=== PATIENT | female | born 1985 | race Caucasian/White ===

== ENCOUNTER 2017-10-10 02:17 | Emergency (ER) | payer BC ==
[2017-10-10] MEDS: IBUPROFEN 600 MG TAB PO (04:38)
[2017-10-10] MEDS: ALPRAZOLAM 0.25 MG TAB PO (04:38)
[2017-10-10] MEDS: ONDANSETRON (ODT) 4 MG TAB ODT (04:39)
== END 2017-10-10 05:59 | disposition home or self-care (01) ==
LOC: E/R 02:17
DX: R51 Headache (principal); R11.0 Nausea; F14.90 Cocaine use, unspecified, uncomplicated; R00.0 Tachycardia, unspecified
CPT/HCPCS: 93005; 99284-25

== ENCOUNTER 2017-10-11 16:39 | Emergency (ER) | payer BC ==
[2017-10-11 18:28] LABS: ADD MAN DIFF? NO
[2017-10-11 18:29] LABS: WHITE BLOOD COUNT 6.2 10^3/ul (4.8-10.8)
[2017-10-11 18:29] LABS: BASOPHILS % 0.5 % (0.0-2.0); EOSINOPHILS # 0.3 10^3/ul (0.0-0.5); EOSINOPHILS % 4.4 % (0.0-7.0); HEMATOCRIT 30.3 % (37.0-47.0); HEMOGLOBIN 8.9 g/dl (12.0-16.0); LYMPHOCYTES # 2.6 10^3/ul (0.8-2.9); LYMPHOCYTES % 41.8 % (15.0-51.0); MEAN CORPUSCULAR HEMOGLOBIN 21.9 pg (29.0-33.0); MEAN CORPUSCULAR HGB CONC 29.4 g/dl (32.0-37.0); MEAN CORPUSCULAR VOLUME 74.4 fl (82.0-101.0); MONOCYTE # 0.6 10^3/ul (0.3-0.9); MONOCYTES % 9.7 % (0.0-11.0); NEUTROPHIL # 2.7 10^3/ul (1.6-7.5); NEUTROPHILS % 43.4 % (39.0-77.0); PLATELET COUNT 399 10^3/UL (140-415); RED BLOOD COUNT 4.07 10^6/ul (4.20-5.40); RED CELL DISTRIBUTION WIDTH 15.7 % (11.5-14.5)
[2017-10-11] MEDS: ONDANSETRON (ODT) 4 MG TAB ODT (18:50)
[2017-10-11] MEDS: FAMOTIDINE 20 MG TAB PO (18:50)
[2017-10-11] MEDS: HYDROCODONE/APAP (5/325) TAB PO (18:50)
[2017-10-11 18:57] LABS: ALANINE AMINOTRANSFERASE 22 IU/L (13-69); ALBUMIN 3.8 g/dl (3.3-4.9); ALBUMIN/GLOBULIN RATIO 1.26; ALKALINE PHOSPHATASE 98 IU/L (42-121); ANION GAP 11 (8-16); ASPARTATE AMINO TRANSFERASE 13 IU/L (15-46); BILIRUBIN,INDIRECT 0.2 mg/dl (0-1.1); BILIRUBIN,TOTAL 0.2 mg/dl (0.2-1.3); BLOOD UREA NITROGEN 17 mg/dl (7-20); CALCIUM 8.2 mg/dl (8.4-10.2); CARBON DIOXIDE 28 mmol/L (21-31); CHLORIDE 109 mmol/L (97-110); GLUCOSE 96 mg/dl (70-220); LIPASE 69 U/L (23-300); POTASSIUM 4.2 mmol/L (3.5-5.1); SODIUM 144 mmol/L (135-144); TOTAL PROTEIN 6.8 g/dl (6.1-8.1)
[2017-10-11 19:08] LABS: ADD UMIC YES; UR ASCORBIC ACID NEGATIVE (NEGATIVE); UR BILIRUBIN (Dip) NEGATIVE (NEGATIVE); UR BLOOD (Dip) NEGATIVE (NEGATIVE); UR CLARITY CLEAR (CLEAR); UR COLOR YELLOW (YELLOW); UR GLUCOSE (Dip) NEGATIVE (NEGATIVE); UR KETONES (Dip) NEGATIVE (NEGATIVE); UR LEUKOCYTE ESTERASE (Dip) TRACE Leu/ul (NEGATIVE); UR MUCUS FEW /HPF (NONE SEEN); UR NITRITE (Dip) NEGATIVE (NEGATIVE); UR RBC 0 /HPF (0-5); UR SQUAMOUS EPITHELIAL CELL FEW /HPF (FEW); UR TOTAL PROTEIN (Dip) NEGATIVE (NEGATIVE); UR UROBILINOGEN (Dip) NEGATIVE (NEGATIVE); UR WBC 2 /HPF (0-5)
== END 2017-10-11 20:01 | disposition home or self-care (01) ==
LOC: FTE 16:39
DX: K80.50 Calculus of bile duct without cholangitis or cholecystitis without obstruction (principal)
CPT/HCPCS: 36415; 76705; 80053; 81001; 81025; 83690; 85025; 99284-25

== ENCOUNTER 2018-09-09 09:09 | Emergency (ER) | payer BC | END 2018-09-09 11:05 | disposition home or self-care (01) | LOC: FTE 09:09 | DX: G43.909 Migraine, unspecified, not intractable, without status migrainosus (principal); Z76.0 Encounter for issue of repeat prescription | CPT/HCPCS: 99281 ==

== ENCOUNTER 2018-09-10 02:18 | Emergency (ER) | payer BC ==
[2018-09-10 04:55] LABS: URINE BLOOD (Dip) POC 1+ (NEGATIVE); URINE GLUCOSE (Dip) POC Negative (NEGATIVE); URINE KETONES (Dip) POC Negative (NEGATIVE); URINE LEUKOCYTE EST (Dip) POC Negative (NEGATIVE); URINE NITRITE (Dip) POC Negative (NEGATIVE); URINE TOTAL PROTEIN POC Negative (NEGATIVE)
[2018-09-10 04:55] LABS: URINE PH (Dip) POC 8.5 (5.0-8.5)
[2018-09-10] MEDS: SOD CHLORIDE 0.9% 1,000 ML IV (04:57)
[2018-09-10 05:05] LABS: ADD MAN DIFF? NO
[2018-09-10 05:06] LABS: WHITE BLOOD COUNT 5.7 10^3/ul (4.8-10.8)
[2018-09-10 05:06] LABS: ABNORMAL IP MESSAGE 1; BASOPHIL # 0.1 10^3/ul (0.0-0.1); BASOPHILS % 1.1 % (0.0-2.0); EOSINOPHILS # 0.1 10^3/ul (0.0-0.5); EOSINOPHILS % 0.9 % (0.0-7.0); HEMATOCRIT 30.6 % (37.0-47.0); HEMOGLOBIN 8.6 g/dl (12.0-16.0); LYMPHOCYTES # 1.9 10^3/ul (0.8-2.9); LYMPHOCYTES % 33.9 % (15.0-51.0); MEAN CORPUSCULAR HGB CONC 28.1 g/dl (32.0-37.0); MEAN CORPUSCULAR VOLUME 71.3 fl (82.0-101.0); MEAN PLATELET VOLUME 10.6 fl (7.4-10.4); MONOCYTE # 0.4 10^3/ul (0.3-0.9); MONOCYTES % 7.4 % (0.0-11.0); NEUTROPHIL # 3.2 10^3/ul (1.6-7.5); NEUTROPHILS % 56.7 % (39.0-77.0); PLATELET COUNT 368 10^3/UL (140-415); RED BLOOD COUNT 4.29 10^6/ul (4.20-5.40)
[2018-09-10] MEDS: ONDANSETRON 4 MG INJ IV (05:11)
[2018-09-10 05:25] LABS: POSITIVE DIFF @See below
[2018-09-10 05:30] LABS: ALANINE AMINOTRANSFERASE 66 IU/L (13-69); ALBUMIN 4.1 g/dl (3.3-4.9); ALBUMIN/GLOBULIN RATIO 1.32; ALKALINE PHOSPHATASE 128 IU/L (42-121); ANION GAP 9 (5-13); ASPARTATE AMINO TRANSFERASE 22 IU/L (15-46); BILIRUBIN,INDIRECT 0.3 mg/dl (0-1.1); BILIRUBIN,TOTAL 0.3 mg/dl (0.2-1.3); BLOOD UREA NITROGEN 6 mg/dl (7-20); CALCIUM 9.1 mg/dl (8.4-10.2); CARBON DIOXIDE 25 mmol/L (21-31); CHLORIDE 108 mmol/L (97-110); CREATININE 0.48 mg/dl (0.44-1.00); Estimated GFR > 60 mL/min (>60); GLUCOSE 98 mg/dl (70-220); LIPASE 34 U/L (23-300); POTASSIUM 4.3 mmol/L (3.5-5.1); SODIUM 142 mmol/L (135-144); TOTAL PROTEIN 7.2 g/dl (6.1-8.1)
== END 2018-09-10 06:14 | disposition home or self-care (01) ==
LOC: FTE 02:18
DX: F41.9 Anxiety disorder, unspecified (principal); R35.0 Frequency of micturition; R51 Headache; R11.0 Nausea; G47.00 Insomnia, unspecified
CPT/HCPCS: 36415; 80053; 81003; 81025; 83690; 85025; 93005; 96374; 99284-25